=== PATIENT | female | born 2000 | race Two or more races ===

== ENCOUNTER 2024-05-22 22:17 | Emergency (ER) | payer SELFPAY ==
[~2024-05-22] VITALS: Ht 167.6 cm; Wt 136.4 kg
[2024-05-22 22:28] VITALS: TEMP 98.3
[2024-05-22 22:46] LABS: BASOPHILS % (AUTO) 0.5 % (0.0-2.0); HEMATOCRIT 41.9 % (36-46); HEMOGLOBIN 13.6 g/dL (12.0-16.0); LYMPHOCYTES % (AUTO) 29.1 % (22.0-44.0); MEAN CORPUSCULAR HEMOGLOBIN 28.2 pg (26.0-34.0); MEAN CORPUSCULAR HGB CONC 32.4 G/dL (31.0-37.0); MEAN CORPUSCULAR VOLUME 87 fL (80-100); MONOCYTES # (AUTO) 0.7 K/uL (0.1-1.0); NEUTROPHILS # (AUTO) 8.7 K/uL (1.8-7.7); NEUTROPHILS % (AUTO) 63.4 % (40.0-70.0); PLATELET COUNT (AUTO) 399 K/uL (150-450); RED BLOOD CELL COUNT(AUTO) 4.82 MIL/uL (4.00-5.20); RED CELL DISTRIBUTION WIDTH 13.8 % (11.5-14.5); WHITE BLOOD COUNT (AUTO) 13.8 K/uL (4.5-11.0)
[2024-05-22 22:57] LABS: ANION GAP 7 mmol/L (8-16); CARBON DIOXIDE 29 mmol/L (22-29); CHLORIDE 104 mmol/L (98-107); GLOMERULAR FILTR. RATE CALC > 60 mL/min (>60); GLUCOSE,RANDOM 150 mg/dL (70-110); POTASSIUM 4.1 mmol/L (3.5-5.1); SODIUM SERUM 140 mmol/L (136-145); UREA NITROGEN, BLOOD 11 mg/dL (7-18)
[2024-05-22 23:00] LABS: ALBUMIN 3.4 g/dL (3.4-5.0); BILIRUBIN,DIRECT 0.1 mg/dL (0.00-0.20); BILIRUBIN,TOTAL 0.3 mg/dL (0.1-1.0); TOTAL PROTEIN, SERUM 7.5 g/dL (6.4-8.2)
[2024-05-22 23:19] LABS: LIPASE 27 U/L (16-77)
[2024-05-22] MEDS: KETOROLAC TROMETHAMINE 30 MG/ML VIAL IVP ONE (23:22)
[2024-05-22] MEDS: ONDANSETRON HCL 4 MG/2 ML VIAL IVP ONE (23:22)
[2024-05-22] MEDS: SODIUM CHLORIDE 0.9% 1,000 ML IV ONE (23:22)
[2024-05-22] MEDS: IOHEXOL 9 MG/ML 500 ML BOTTLE PO ONE (23:33)
[2024-05-22] MEDS: MORPHINE SULFATE 4 MG/ML SYRINGE IVP ONE (23:33)
[2024-05-22] MEDS ORDERED: IOHEXOL 350 MG/ML 100 ML VIAL ONE (23:36)
[2024-05-22] MEDS ORDERED: SODIUM CHLORIDE 0.9% 100 ML ONE (23:36)
[2024-05-23 00:04] LABS: APPEARANCE,URINE CLEAR (CLEAR); BILIRUBIN,URINE NEGATIVE (NEGATIVE); COLOR,URINE YELLOW (YELLOW); GLUCOSE, URINE (UA) NEGATIVE (NEGATIVE); KETONES,URINE NEGATIVE (NEGATIVE); LEUKOCYTE ESTERASE ,URINE TRACE (NEGATIVE); NITRATE,URINE NEGATIVE (NEGATIVE); OCCULT BLOOD,URINE NEGATIVE (NEGATIVE); PROTEIN,URINE TRACE mg/dL (NEGATIVE); SPECIFIC GRAVITIY, URINE 1.029 (1.003-1.030); UROBILINOGEN,URINE <=1.0 mg/dL (<=1.0)
[2024-05-23 00:10] LABS: ALCOHOL, URINE DRUG SCREEN NEGATIVE (NEGATIVE); AMPHET/METH SCREEN,URINE NEGATIVE (NEGATIVE); BARBITURATE SCREEN, URINE NEGATIVE (NEGATIVE); BENZODIAZEPINES SCREEN,URINE NEGATIVE (NEGATIVE); CANNABINOID SCREEN,URINE NEGATIVE (NEGATIVE); COCAINE SCREEN,URINE NEGATIVE (NEGATIVE); METHADONE SCREEN, URINE NEGATIVE (NEGATIVE); OPIATE SCREEN,URINE NEGATIVE (NEGATIVE); PHENCYCLIDINE SCREEN,URINE NEGATIVE (NEGATIVE)
[2024-05-23 00:32] LABS: RBC,URINE None Seen /HPF (0-2)
[2024-05-23 00:33] LABS: BACTERIA,URINE None Seen /HPF (None Seen); SQUAMOUS EPITHELIAL CELL,UR Few /LPF (None Seen); WBC,URINE 0-2 /HPF (0-5)
[2024-05-23] MEDS: HYDROmorphone HCL 2 MG/ML SYRINGE IVP ONE ×2 (01:14→04:20)
[2024-05-23 06:41] VITALS: BP 131/78; PULSE 95; RESP 20; O2SAT 95
== END 2024-05-23 07:15 | disposition short-term general hospital (02) ==
LOC: EMS 22:17
DX: N83.201 Unspecified ovarian cyst, right side (principal); R11.10 Vomiting, unspecified
CPT/HCPCS: 99291; 74177; 96374; 96361; 96375 ×2; 80048; 80076; 81001; 83690; 84703; 85025; 36415; 80307; 76856; 96376; J1885; Q9967 ×2; J2270; J2405; J7030; J7050; J1171